=== PATIENT | male | born 1935 | race Caucasian/White ===

== ENCOUNTER → 2017-04-11 | Outpatient (CLI) | payer MEDICARE, OTHER | END | disposition disaster alternative care site (69) | LOC: GRAD 15:30 | DX: M25.512 Pain in left shoulder (principal); S46.212D Strain of muscle, fascia and tendon of other parts of biceps, left arm, subsequent encounter; S46.012A Strain of muscle(s) and tendon(s) of the rotator cuff of left shoulder, initial encounter; S46.912D Strain of unspecified muscle, fascia and tendon at shoulder and upper arm level, left arm, subsequent encounter; W19.XXXA Unspecified fall, initial encounter ==